=== PATIENT | male | born 1960 | race African-American/Black ===

== ENCOUNTER 2017-11-25 11:32 | Inpatient (IN) ==
[2017-11-25 12:52] LABS: Basophils % 0.4 % (0.0-0.8); Eosinophils # 0.1 10*3/uL (0.0-0.87); Eosinophils % 1.6 % (0.00-10.9); Hematocrit 40.5 VOL% (42.0-52.0); Hemoglobin 12.5 GM/DL (14.0-18.0); Immature Granulocytes % 1.3 %; Immature Granulocytes Absolute 0.07 #; Lymphocytes # 0.5 10*3/uL (1.4-4.0); Lymphocytes % 9.5 % (21.2-54.2); Mean Corpuscular HGB Conc 30.9 GM/DL (32-36); Mean Corpuscular Hemoglobin 35 PG (27-34); Mean Corpuscular Volume 111.9 FL (87-102); Mean Platelet Volume 9.8 FL (9.6-12.0); Monocytes # 0.9 10*3/uL (0.11-0.8); Monocytes % 15.7 % (1.7-12.7); Neutrophils # 3.9 10*3/uL (1.4-7.4); Neutrophils % 71.5 % (38.7-73.9); Platelet Count 201 T/CUMM (130-400); Red Blood Count 3.62 MC/CUMM (3.8-5.5); Red Cell Distribution Width 13.2 % (9.3-17.3); White Blood Count 5.5 T/CUMM (4-12)
[2017-11-25 13:07] LABS: Albumin 1.9 G/DL (3.4-5.0); Bilirubin,Total 0.7 MG/DL (0.2-1.0); Calcium 7.5 MG/DL (8.5-10.1); Osmolality,Calculated 298.4 MOS/KG (273-304); Potassium 5.1 MMOL/L (3.5-5.1); Total Protein 5.6 G/DL (6.4-8.3)
[2017-11-25 13:11] LABS: Lactic Acid 1.2 MMOL/L (0.4-2.0)
[2017-11-25 13:28] LABS: Eosinophils 2 % (0-10); Lymphocytes 11 % (20-55); Platelet Estimate Normal; Segmented Neutrophils 71 % (50-85); Total Cells Counted 100
[2017-11-25] MEDS ORDERED: DILTIAZEM 100 MG VIAL.ADD IV STA (13:37)
[2017-11-25] MEDS ORDERED: DILTIAZEM 50 MG/10 ML VIAL IV ONE (13:38)
[2017-11-25] MEDS ORDERED: guaiFENesin/DM ER 600-30 MG TABLET PO PRN (14:47)
[2017-11-25] MEDS ORDERED: NICOTINE 21 MG/24 HR PATCH TRANSDERM PRN (14:47)
[2017-11-25] MEDS ORDERED: ACETAMINOPHEN 325 MG TABLET PO PRN (14:47)
[2017-11-25] MEDS ORDERED: ONDANSETRON 4 MG/2 ML VIAL IV PRN (14:47)
[2017-11-25] MEDS ORDERED: MORPHINE 2 MG/1 ML SYRINGE IV PRN (14:47)
[2017-11-25] MEDS ORDERED: hydrALAZINE 20 MG/1 ML VIAL IV STA (14:52)
[2017-11-25] MEDS ORDERED: DILTIAZEM 30 MG TABLET PO SCH (15:00)
[2017-11-25] MEDS ORDERED: DILTIAZEM 100 MG VIAL.ADD IV ONE (15:06)
[2017-11-25] MEDS: DILTIAZEM 30 MG TABLET PO SCH (19:10)
[2017-11-25] MEDS: CALCIUM ACETATE 667 MG CAPSULE PO SCH (21:54)
[2017-11-25] MEDS: GABAPENTIN 300 MG CAPSULE PO SCH (21:54)
[2017-11-25] MEDS: BRIMONIDINE/TIMOLOL OPH SOLN 5 ML BOTTLE BOTH EYES SCH (21:54)
[2017-11-25] MEDS: DOCUSATE SODIUM 100 MG CAPSULE PO SCH (21:54)
[2017-11-25] MEDS: BIMATOPROST 0.01% OPH SOLN 2.5 ML BOTTLE BOTH EYES SCH (21:54)
[2017-11-25] MEDS: acetaZOLAMIDE 250 MG TABLET PO SCH (21:55)
[2017-11-26 06:24] LABS: Basophils % 0.4 % (0.0-0.8); Eosinophils # 0.1 10*3/uL (0.0-0.87); Eosinophils % 1.2 % (0.00-10.9); Hematocrit 34.3 VOL% (42.0-52.0); Hemoglobin 10.7 GM/DL (14.0-18.0); Immature Granulocytes % 1.8 %; Immature Granulocytes Absolute 0.09 #; Lymphocytes # 0.6 10*3/uL (1.4-4.0); Lymphocytes % 12.5 % (21.2-54.2); Mean Corpuscular HGB Conc 31.2 GM/DL (32-36); Mean Corpuscular Hemoglobin 35 PG (27-34); Mean Corpuscular Volume 110.6 FL (87-102); Mean Platelet Volume 9.7 FL (9.6-12.0); Monocytes # 0.9 10*3/uL (0.11-0.8); Neutrophils # 3.4 10*3/uL (1.4-7.4); Neutrophils % 66.1 % (38.7-73.9); Platelet Count 202 T/CUMM (130-400); Red Cell Distribution Width 13.3 % (9.3-17.3); White Blood Count 5.1 T/CUMM (4-12)
[2017-11-26 06:25] LABS: Alanine Aminotransferase < 6 U/L (16-61); Albumin 1.6 G/DL (3.4-5.0); Alkaline Phosphatase 76 U/L (45-117); Aspartate Amino Transferase 22 U/L (0-37); Blood Urea Nitrogen 78 MG/DL (7-18); Calcium 7.6 MG/DL (8.5-10.1); Cholesterol 133 MG/DL (50-200); Glucose 96 MG/DL (74-106); HDL Cholesterol 29 MG/DL (40-60); Osmolality,Calculated 297.7 MOS/KG (273-304); Potassium 4.8 MMOL/L (3.5-5.1); Risk Ratio 4.59; Sodium 138 MMOL/L (136-145); Total Protein 4.7 G/DL (6.4-8.3); Triglycerides 242 MG/DL (2-150); VLDL CHOLESTEROL 48.4 MG/DL
[2017-11-26 06:37] LABS: Band Neutrophils 4 % (0-10); Burr Cells Slight; Eosinophils 1 % (0-10); Hypochromasia 1+; Lymphocytes 11 % (20-55); Ovalocytes Slight; Platelet Estimate Adequate; Segmented Neutrophils 68 % (50-85); Total Cells Counted 100
[2017-11-26] MEDS: CALCIUM ACETATE 667 MG CAPSULE PO SCH ×3 (08:28→17:47)
[2017-11-26] MEDS: acetaZOLAMIDE 250 MG TABLET PO SCH ×2 (08:28→21:58)
[2017-11-26] MEDS: BRIMONIDINE/TIMOLOL OPH SOLN 5 ML BOTTLE BOTH EYES SCH ×2 (08:29→22:00)
[2017-11-26] MEDS: PANTOPRAZOLE 40 MG TABLET PO SCH (08:29)
[2017-11-26] MEDS: DOCUSATE SODIUM 100 MG CAPSULE PO SCH ×2 (08:29→21:58)
[2017-11-26] MEDS: CYANOCOBALAMIN 500 MCG TABLET PO SCH (08:29)
[2017-11-26] MEDS: FAMOTIDINE 20 MG TABLET PO SCH (08:29)
[2017-11-26] MEDS: CINACALCET 30 MG TABLET PO SCH (08:29)
[2017-11-26] MEDS: DILTIAZEM 30 MG TABLET PO SCH ×2 (08:30→21:50)
[2017-11-26] MEDS: MULTIVITAMIN (BEROCCA) TABLET PO SCH (08:31)
[2017-11-26] MEDS: GABAPENTIN 300 MG CAPSULE PO SCH ×2 (08:31→21:49)
[2017-11-26 10:36] LABS: Hepatitis A Ab IgM Result Negative (Negative); Hepatitis B Core IgM Quant 0.17 Index; Hepatitis B Core IgM Result Negative (Negative); Hepatitis B Surface Ag Quant < 0.10 Index; Hepatitis B Surface Ag Result Negative (Negative); Hepatitis C Virus Ab Quant > 11.00 Index
[2017-11-26 10:47] LABS: Hepatitis C Virus Ab Result POSITIVE (Negative)
[2017-11-26] MEDS: BIMATOPROST 0.01% OPH SOLN 2.5 ML BOTTLE BOTH EYES SCH (22:00)
[2017-11-27] MEDS: BRIMONIDINE/TIMOLOL OPH SOLN 5 ML BOTTLE BOTH EYES SCH (08:24)
[2017-11-27] MEDS: CINACALCET 30 MG TABLET PO SCH (08:25)
[2017-11-27] MEDS: DILTIAZEM 30 MG TABLET PO SCH (08:25)
[2017-11-27] MEDS: CYANOCOBALAMIN 500 MCG TABLET PO SCH (08:25)
[2017-11-27] MEDS: FAMOTIDINE 20 MG TABLET PO SCH (08:25)
[2017-11-27] MEDS: MULTIVITAMIN (BEROCCA) TABLET PO SCH (08:25)
[2017-11-27] MEDS: CALCIUM ACETATE 667 MG CAPSULE PO SCH ×2 (08:25→13:00)
[2017-11-27] MEDS: PANTOPRAZOLE 40 MG TABLET PO SCH (08:25)
[2017-11-27] MEDS: acetaZOLAMIDE 250 MG TABLET PO SCH (08:25)
[2017-11-27] MEDS: GABAPENTIN 300 MG CAPSULE PO SCH (08:25)
[2017-11-27] MEDS: DOCUSATE SODIUM 100 MG CAPSULE PO SCH (08:27)
[2017-11-27 12:16] VITALS: BP 138/81
[2017-11-27] MEDS ORDERED: DILTIAZEM CD 180 MG CAPSULE PO SCH (15:00)
== END 2017-11-27 15:08 | disposition home or self-care (01) | DRG 682 ==
LOC: EDUNIT# → EDBD → N.ED 11:32 → N.EDINP 14:46 → N.2E 19:33
PROVIDERS: ADMIT Hospitalist; ATTEND Hospitalist

== ENCOUNTER 2017-11-28 17:56 | Inpatient (IN) ==
[2017-11-28] MEDS ORDERED: ASPIRIN CHEW 81 MG TABLET PO STA (18:18)
[2017-11-28] MEDS ORDERED: METOPROLOL TARTRATE 5 MG/5 ML VIAL IV STA ×2 (18:20→18:45)
[2017-11-28] MEDS ORDERED: METOPROLOL TARTRATE 5 MG/5 ML VIAL IV ONE ×2 (18:23→19:02)
[2017-11-28] MEDS ORDERED: ACETAMINOPHEN 325 MG TABLET PO ONE (18:41)
[2017-11-28] MEDS ORDERED: PIPERACILLIN/TAZOBACTAM 2,250 MG in SODIUM CHLORIDE 0.9% 100 ML IV STA (18:42)
[2017-11-28] MEDS ORDERED: VANCOMYCIN INJ 1,000 MG in SODIUM CHLORIDE 0.9% 250 ML IV STA (18:44)
[2017-11-28] MEDS ORDERED: HEPARIN LOCK FLUSH 500 UNIT/5 ML SYRINGE IV ONE (18:53)
[2017-11-28] MEDS ORDERED: ACETAMINOPHEN 325 MG TABLET ONE (19:02)
[2017-11-28] MEDS ORDERED: VANCOMYCIN 1,000 MG VIAL ONE (19:02)
[2017-11-28 19:11] LABS: Basophils % 0.2 % (0.0-0.8); Eosinophils % 0.2 % (0.00-10.9); Hematocrit 34.3 VOL% (42.0-52.0); Hemoglobin 10.7 GM/DL (14.0-18.0); Immature Granulocytes % 1.6 %; Lymphocytes # 0.5 10*3/uL (1.4-4.0); Lymphocytes % 3.7 % (21.2-54.2); Mean Corpuscular HGB Conc 31.2 GM/DL (32-36); Mean Corpuscular Hemoglobin 34 PG (27-34); Mean Corpuscular Volume 110.3 FL (87-102); Mean Platelet Volume 9.2 FL (9.6-12.0); Monocytes # 1.6 10*3/uL (0.11-0.8); Monocytes % 12.5 % (1.7-12.7); Neutrophils # 10.4 10*3/uL (1.4-7.4); Neutrophils % 81.8 % (38.7-73.9); Platelet Count 180 T/CUMM (130-400); Red Blood Count 3.11 MC/CUMM (3.8-5.5); Red Cell Distribution Width 13.3 % (9.3-17.3); White Blood Count 12.7 T/CUMM (4-12)
[2017-11-28 19:45] LABS: Alanine Aminotransferase < 9 U/L (16-61); Albumin 1.7 G/DL (3.4-5.0); Alkaline Phosphatase 87 U/L (45-117); Aspartate Amino Transferase 23 U/L (0-37); Blood Urea Nitrogen 60 MG/DL (7-18); Calcium 7.4 MG/DL (8.5-10.1); Glucose 99 MG/DL (74-106); Osmolality,Calculated 291.7 MOS/KG (273-304); Potassium 4.5 MMOL/L (3.5-5.1); Sodium 138 MMOL/L (136-145); Total Protein 5.3 G/DL (6.4-8.3); Troponin I Only 0.019 NG/ML (0.00-0.045)
[2017-11-28 21:29] LABS: Anisocytosis 1+; Band Neutrophils 2 % (0-10); Eosinophils 1 % (0-10); Lymphocytes 3 % (20-55); Macrocytosis 1+; Ovalocytes 1+; Platelet Estimate Normal; Segmented Neutrophils 83 % (50-85); Total Cells Counted 100
[2017-11-28] MEDS ORDERED: ACETAMINOPHEN 325 MG TABLET PO PRN (23:32)
[2017-11-28] MEDS ORDERED: ONDANSETRON 4 MG/2 ML VIAL IV PRN (23:32)
[2017-11-28] MEDS ORDERED: MORPHINE 2 MG/1 ML SYRINGE IV PRN (23:32)
[2017-11-28] MEDS ORDERED: CALCIUM GLUCONATE 1,000 MG in SODIUM CHLORIDE 0.9% 100 ML IV ONE (23:37)
[2017-11-28] MEDS ORDERED: ALBUTEROL/IPRATROPIUM 3 ML NEB RESP TX PRN (23:41)
[2017-11-28] MEDS ORDERED: ENOXAPARIN 30 MG/0.3 ML SYRINGE SUBCUT SCH (23:45)
[2017-11-29] MEDS ORDERED: METOPROLOL TARTRATE 5 MG/5 ML VIAL IV SCH
[2017-11-29] MEDS: ALBUTEROL/IPRATROPIUM 3 ML NEB RESP TX SCH ×4 (00:24→19:43)
[2017-11-29] MEDS ORDERED: VANCOMYCIN INJ 500 MG in SODIUM CHLORIDE 0.9% 100 ML IV ONE ×2 (01:00→18:00)
[2017-11-29] MEDS: ENOXAPARIN 60 MG/0.6 ML SYRINGE SUBCUT SCH ×3 (01:28→23:23)
[2017-11-29] MEDS ORDERED: VANCOMYCIN INJ 500 MG in SODIUM CHLORIDE 0.9% 100 ML IV PRN (01:31)
[2017-11-29] MEDS: LEVOTHYROXINE 100 MCG VIAL IV SCH ×2 (03:23→06:00)
[2017-11-29 04:38] LABS: Calcium 7.5 MG/DL (8.5-10.1); Magnesium 1.9 MG/DL (1.8-2.4); Osmolality,Calculated 296.4 MOS/KG (273-304); Potassium 4.5 MMOL/L (3.5-5.1)
[2017-11-29] MEDS ORDERED: PIPERACILLIN/TAZOBACTAM 2,250 MG in SODIUM CHLORIDE 0.9% 100 ML IV SCH (09:00)
[2017-11-29] MEDS ORDERED: METOPROLOL TARTRATE 50 MG TABLET PO SCH (09:00)
[2017-11-29] MEDS: METOPROLOL TARTRATE 25 MG TABLET PO SCH ×2 (09:09→20:51)
[2017-11-29] MEDS: DOCUSATE SODIUM 100 MG CAPSULE PO SCH ×2 (09:09→20:51)
[2017-11-29] MEDS: DILTIAZEM CD 180 MG CAPSULE PO SCH ×2 (09:09→20:51)
[2017-11-29] MEDS: PANTOPRAZOLE 40 MG TABLET PO SCH (09:10)
[2017-11-29] MEDS: acetaZOLAMIDE 250 MG TABLET PO SCH ×2 (11:34→20:51)
[2017-11-29] MEDS: PIPERACILLIN/TAZOBACTAM 3,375 MG in SODIUM CHLORIDE 0.9% 100 ML IV SCH ×2 (11:35→22:35)
[2017-11-29] MEDS ORDERED: ZINC OXIDE PASTE 113 GM TUBE TOP PRN (17:41)
[2017-11-29] MEDS: PREGABALIN 75 MG CAPSULE PO SCH (20:51)
[2017-11-29] MEDS: traZODone 50 MG TABLET PO SCH (22:34)
[2017-11-30] MEDS: ALBUTEROL/IPRATROPIUM 3 ML NEB RESP TX SCH ×4 (01:20→21:00)
[2017-11-30 04:50] LABS: Basophils % 0.5 % (0.0-0.8); Eosinophils # 0.1 10*3/uL (0.0-0.87); Eosinophils % 1.3 % (0.00-10.9); Hematocrit 29.1 VOL% (42.0-52.0); Immature Granulocytes % 3.5 %; Lymphocytes # 0.4 10*3/uL (1.4-4.0); Lymphocytes % 4.6 % (21.2-54.2); Mean Corpuscular HGB Conc 30.9 GM/DL (32-36); Mean Corpuscular Hemoglobin 34 PG (27-34); Mean Corpuscular Volume 110.6 FL (87-102); Mean Platelet Volume 9.7 FL (9.6-12.0); Monocytes # 1.1 10*3/uL (0.11-0.8); Monocytes % 12.6 % (1.7-12.7); Neutrophils # 6.7 10*3/uL (1.4-7.4); Neutrophils % 77.5 % (38.7-73.9); Platelet Count 144 T/CUMM (130-400); Red Blood Count 2.63 MC/CUMM (3.8-5.5); Red Cell Distribution Width 13.1 % (9.3-17.3); White Blood Count 8.6 T/CUMM (4-12)
[2017-11-30 05:18] LABS: Band Neutrophils 1 % (0-10); Eosinophils 1 % (0-10); Hypochromasia 1+; Lymphocytes 4 % (20-55); Metamyelocytes 1 %; Myelocytes 1 %; Segmented Neutrophils 82 % (50-85); Total Cells Counted 100
[2017-11-30 05:19] LABS: Burr Cells Few; Macrocytosis 1+
[2017-11-30 05:20] LABS: Platelet Estimate Adequate
[2017-11-30 05:30] LABS: Calcium 7.3 MG/DL (8.5-10.1); Osmolality,Calculated 303.3 MOS/KG (273-304); Potassium 4.5 MMOL/L (3.5-5.1)
[2017-11-30] MEDS: LEVOTHYROXINE 100 MCG VIAL IV SCH (06:04)
[2017-11-30] MEDS: acetaZOLAMIDE 250 MG TABLET PO SCH ×2 (08:55→21:09)
[2017-11-30] MEDS: PREGABALIN 75 MG CAPSULE PO SCH ×2 (08:55→21:08)
[2017-11-30] MEDS: METOPROLOL TARTRATE 25 MG TABLET PO SCH ×2 (08:56→21:09)
[2017-11-30] MEDS: DILTIAZEM CD 180 MG CAPSULE PO SCH ×2 (08:56→21:08)
[2017-11-30] MEDS: DOCUSATE SODIUM 100 MG CAPSULE PO SCH ×2 (08:56→21:08)
[2017-11-30] MEDS: PANTOPRAZOLE 40 MG TABLET PO SCH (08:56)
[2017-11-30] MEDS ORDERED: VANCOMYCIN INJ 1,000 MG in SODIUM CHLORIDE 0.9% 250 ML IV ONE (11:00)
[2017-11-30] MEDS: PIPERACILLIN/TAZOBACTAM 3,375 MG in SODIUM CHLORIDE 0.9% 100 ML IV SCH ×2 (11:13→23:20)
[2017-11-30] MEDS: traZODone 50 MG TABLET PO SCH (21:08)
[2017-11-30] MEDS: LOSARTAN 25 MG TABLET PO SCH (21:10)
[2017-11-30] MEDS: ENOXAPARIN 60 MG/0.6 ML SYRINGE SUBCUT SCH (23:17)
[2017-12-01] MEDS: ALBUTEROL/IPRATROPIUM 3 ML NEB RESP TX SCH ×4 (01:21→19:41)
[2017-12-01] MEDS: LEVOTHYROXINE 100 MCG VIAL IV SCH (06:00)
[2017-12-01 11:18] LABS: Appearance,CSF Clear; Lymphocytes,CSF 89 %; Monocytes,CSF 6 %; Neutrophils,CSF 5 %; Red Blood Cell,CSF < 1 C/CUMM; White Blood Cell,CSF 24 C/CUMM
[2017-12-01] MEDS: PREGABALIN 75 MG CAPSULE PO SCH ×2 (13:58→20:51)
[2017-12-01] MEDS: DOCUSATE SODIUM 100 MG CAPSULE PO SCH ×2 (13:59→20:51)
[2017-12-01] MEDS: PANTOPRAZOLE 40 MG TABLET PO SCH (13:59)
[2017-12-01] MEDS: METOPROLOL TARTRATE 25 MG TABLET PO SCH ×2 (13:59→20:51)
[2017-12-01] MEDS: acetaZOLAMIDE 250 MG TABLET PO SCH ×2 (13:59→20:51)
[2017-12-01] MEDS: DILTIAZEM CD 180 MG CAPSULE PO SCH ×2 (13:59→20:52)
[2017-12-01] MEDS: LACTULOSE 20 GM/30 ML UDCUP PO SCH ×2 (15:07→20:51)
[2017-12-01 15:23] LABS: Hepatitis A Ab IgM Quant 0.11 Index; Hepatitis A Ab IgM Result Negative (Negative); Hepatitis B Core IgM Quant 0.17 Index; Hepatitis B Core IgM Result Negative (Negative); Hepatitis B Surface Ag Quant < 0.10 Index; Hepatitis B Surface Ag Result Negative (Negative); Hepatitis C Virus Ab Quant > 11.00 Index; Hepatitis C Virus Ab Result Positive (Negative)
[2017-12-01] MEDS ORDERED: SKIN HEALING OINT (AQUAPHOR) 50 GM TUBE TOP PRN (15:30)
[2017-12-01] MEDS: ZINC OXIDE PASTE 113 GM TUBE TOP SCH (20:50)
[2017-12-01] MEDS: traZODone 50 MG TABLET PO SCH (20:51)
[2017-12-01] MEDS: LOSARTAN 25 MG TABLET PO SCH (20:51)
[2017-12-01] MEDS: SODIUM CHLORIDE 0.9% IV SCH (21:11)
[2017-12-01] MEDS: ACYCLOVIR IV SCH (21:11)
[2017-12-01] MEDS: ENOXAPARIN 60 MG/0.6 ML SYRINGE SUBCUT SCH (23:51)
[2017-12-02] MEDS: ALBUTEROL/IPRATROPIUM 3 ML NEB RESP TX SCH ×4 (04:31→20:17)
[2017-12-02 06:13] LABS: Basophils % 0.3 % (0.0-0.8); Eosinophils # 0.1 10*3/uL (0.0-0.87); Eosinophils % 1.4 % (0.00-10.9); Hematocrit 32.2 VOL% (42.0-52.0); Hemoglobin 10.2 GM/DL (14.0-18.0); Immature Granulocytes Absolute 0.49 #; Lymphocytes # 0.4 10*3/uL (1.4-4.0); Lymphocytes % 6.2 % (21.2-54.2); Mean Corpuscular HGB Conc 31.7 GM/DL (32-36); Mean Corpuscular Hemoglobin 35 PG (27-34); Mean Corpuscular Volume 109.9 FL (87-102); Mean Platelet Volume 9.6 FL (9.6-12.0); Monocytes # 0.9 10*3/uL (0.11-0.8); Monocytes % 13.3 % (1.7-12.7); Neutrophils % 71.8 % (38.7-73.9); Platelet Count 141 T/CUMM (130-400); Red Blood Count 2.93 MC/CUMM (3.8-5.5); Red Cell Distribution Width 13.2 % (9.3-17.3)
[2017-12-02] MEDS: LEVOTHYROXINE 100 MCG VIAL IV SCH (06:22)
[2017-12-02 06:32] LABS: Eosinophils 2 % (0-10); Lymphocytes 9 % (20-55); Macrocytosis 1+; Metamyelocytes 1 %; Nucleated Red Blood Cells 1 (0-5); Segmented Neutrophils 79 % (50-85); Total Cells Counted 100
[2017-12-02 06:33] LABS: Burr Cells Few; Platelet Estimate Adequate
[2017-12-02 06:36] LABS: Alanine Aminotransferase < 6 U/L (16-61); Albumin 1.4 G/DL (3.4-5.0); Alkaline Phosphatase 94 U/L (45-117); Aspartate Amino Transferase 27 U/L (0-37); Blood Urea Nitrogen 45 MG/DL (7-18); Calcium 7.6 MG/DL (8.5-10.1); Glucose 102 MG/DL (74-106); Osmolality,Calculated 294.1 MOS/KG (273-304); Potassium 4.3 MMOL/L (3.5-5.1); Sodium 142 MMOL/L (136-145); Total Protein 4.9 G/DL (6.4-8.3)
[2017-12-02] MEDS ORDERED: ZINC OXIDE PASTE 113 GM TUBE TOP SCH (09:00)
[2017-12-02] MEDS: ZINC OXIDE PASTE 113 GM TUBE TOP SCH ×2 (09:10→21:45)
[2017-12-02] MEDS: DILTIAZEM CD 180 MG CAPSULE PO SCH ×2 (14:50→21:31)
[2017-12-02] MEDS: acetaZOLAMIDE 250 MG TABLET PO SCH ×2 (14:51→21:31)
[2017-12-02] MEDS: LACTULOSE 20 GM/30 ML UDCUP PO SCH (14:51)
[2017-12-02] MEDS: METOPROLOL TARTRATE 25 MG TABLET PO SCH ×2 (14:51→21:30)
[2017-12-02] MEDS: DOCUSATE SODIUM 100 MG CAPSULE PO SCH (14:51)
[2017-12-02] MEDS: PREGABALIN 75 MG CAPSULE PO SCH ×2 (14:52→21:30)
[2017-12-02] MEDS: PANTOPRAZOLE 40 MG TABLET PO SCH (14:52)
[2017-12-02] MEDS: LOSARTAN 25 MG TABLET PO SCH (21:31)
[2017-12-02] MEDS: traZODone 50 MG TABLET PO SCH (21:31)
[2017-12-02] MEDS: ACYCLOVIR IV SCH (21:37)
[2017-12-02] MEDS: SODIUM CHLORIDE 0.9% IV SCH (21:37)
[2017-12-02] MEDS: ENOXAPARIN 60 MG/0.6 ML SYRINGE SUBCUT SCH (23:55)
[2017-12-03] MEDS: ALBUTEROL/IPRATROPIUM 3 ML NEB RESP TX SCH ×4 (00:41→21:16)
[2017-12-03] MEDS: LACTULOSE 20 GM/30 ML UDCUP PO SCH ×3 (01:09→22:56)
[2017-12-03] MEDS: DOCUSATE SODIUM 100 MG CAPSULE PO SCH ×3 (01:10→21:43)
[2017-12-03 06:26] LABS: Basophils % 0.3 % (0.0-0.8); Eosinophils # 0.2 10*3/uL (0.0-0.87); Eosinophils % 2.2 % (0.00-10.9); Hematocrit 31.6 VOL% (42.0-52.0); Immature Granulocytes % 6.4 %; Immature Granulocytes Absolute 0.43 #; Lymphocytes # 0.5 10*3/uL (1.4-4.0); Lymphocytes % 7.8 % (21.2-54.2); Mean Corpuscular HGB Conc 31.6 GM/DL (32-36); Mean Corpuscular Hemoglobin 35 PG (27-34); Mean Corpuscular Volume 109.7 FL (87-102); Mean Platelet Volume 9.8 FL (9.6-12.0); Monocytes # 0.8 10*3/uL (0.11-0.8); Monocytes % 11.5 % (1.7-12.7); Neutrophils # 4.8 10*3/uL (1.4-7.4); Neutrophils % 71.8 % (38.7-73.9); Platelet Count 120 T/CUMM (130-400); Red Blood Count 2.88 MC/CUMM (3.8-5.5); White Blood Count 6.7 T/CUMM (4-12)
[2017-12-03] MEDS: LEVOTHYROXINE 100 MCG VIAL IV SCH (06:40)
[2017-12-03 06:53] LABS: Calcium 8.1 MG/DL (8.5-10.1); Osmolality,Calculated 284.4 MOS/KG (273-304); Potassium 4.3 MMOL/L (3.5-5.1)
[2017-12-03 06:55] LABS: Eosinophils 1 % (0-10); Lymphocytes 3 % (20-55); Segmented Neutrophils 91 % (50-85); Total Cells Counted 100
[2017-12-03 06:56] LABS: Burr Cells Slight; Giant Platelets Few; Hypochromasia 1+; Macrocytosis Slight; Ovalocytes Slight; Platelet Estimate Normal
[2017-12-03] MEDS: PREGABALIN 75 MG CAPSULE PO SCH ×2 (08:09→21:43)
[2017-12-03] MEDS: ZINC OXIDE PASTE 113 GM TUBE TOP SCH ×2 (08:09→22:57)
[2017-12-03] MEDS: PANTOPRAZOLE 40 MG TABLET PO SCH (08:09)
[2017-12-03] MEDS: acetaZOLAMIDE 250 MG TABLET PO SCH ×2 (08:09→21:41)
[2017-12-03] MEDS: DILTIAZEM CD 180 MG CAPSULE PO SCH ×2 (08:09→21:41)
[2017-12-03] MEDS: METOPROLOL TARTRATE 25 MG TABLET PO SCH ×2 (08:10→21:43)
[2017-12-03] MEDS ORDERED: PIPERACILLIN/TAZOBACTAM 2,250 MG in SODIUM CHLORIDE 0.9% 100 ML IV SCH (14:00)
[2017-12-03] MEDS: APIXABAN 2.5 MG TABLET PO SCH ×2 (14:31→21:43)
[2017-12-03] MEDS: PIPERACILLIN/TAZOBACTAM 3,375 MG in SODIUM CHLORIDE 0.9% 100 ML IV SCH (15:42)
[2017-12-03] MEDS ORDERED: VANCOMYCIN INJ 1,250 MG in SODIUM CHLORIDE 0.9% 250 ML IV ONE (19:00)
[2017-12-03] MEDS: traZODone 50 MG TABLET PO SCH (21:43)
[2017-12-03] MEDS: LOSARTAN 25 MG TABLET PO SCH (21:43)
[2017-12-04] MEDS: ACYCLOVIR IV SCH ×2 (00:09→23:22)
[2017-12-04] MEDS: SODIUM CHLORIDE 0.9% IV SCH ×2 (00:09→23:22)
[2017-12-04] MEDS: ALBUTEROL/IPRATROPIUM 3 ML NEB RESP TX SCH ×4 (01:12→20:18)
[2017-12-04] MEDS: PIPERACILLIN/TAZOBACTAM 3,375 MG in SODIUM CHLORIDE 0.9% 100 ML IV SCH ×2 (02:05→17:30)
[2017-12-04] MEDS: LEVOTHYROXINE 100 MCG VIAL IV SCH (06:20)
[2017-12-04] MEDS: DILTIAZEM CD 180 MG CAPSULE PO SCH ×2 (09:53→21:26)
[2017-12-04] MEDS: acetaZOLAMIDE 250 MG TABLET PO SCH ×2 (09:53→21:27)
[2017-12-04] MEDS: PANTOPRAZOLE 40 MG TABLET PO SCH (09:54)
[2017-12-04] MEDS: DOCUSATE SODIUM 100 MG CAPSULE PO SCH ×2 (09:54→21:27)
[2017-12-04] MEDS: METOPROLOL TARTRATE 25 MG TABLET PO SCH ×2 (09:54→21:27)
[2017-12-04] MEDS: LACTULOSE 20 GM/30 ML UDCUP PO SCH ×2 (09:54→21:26)
[2017-12-04] MEDS: APIXABAN 2.5 MG TABLET PO SCH ×2 (09:54→21:27)
[2017-12-04] MEDS: PREGABALIN 75 MG CAPSULE PO SCH ×2 (09:54→21:26)
[2017-12-04] MEDS: ZINC OXIDE PASTE 113 GM TUBE TOP SCH ×2 (09:55→21:27)
[2017-12-04] MEDS ORDERED: VANCOMYCIN INJ 500 MG in SODIUM CHLORIDE 0.9% 100 ML IV ONE ×2 (12:00→23:30)
[2017-12-04] MEDS ORDERED: VANCOMYCIN INJ 500 MG in SODIUM CHLORIDE 0.9% 100 ML IV PRN (18:00)
[2017-12-04] MEDS: traZODone 50 MG TABLET PO SCH (21:27)
[2017-12-04] MEDS: LOSARTAN 25 MG TABLET PO SCH (21:27)
[2017-12-04] MEDS: VANCOMYCIN INJ 500 MG in SODIUM CHLORIDE 0.9% 100 ML IV ONE ×2 (22:15→23:16)
[2017-12-05] MEDS: ALBUTEROL/IPRATROPIUM 3 ML NEB RESP TX SCH ×5 (00:50→20:51)
[2017-12-05] MEDS: PIPERACILLIN/TAZOBACTAM 3,375 MG in SODIUM CHLORIDE 0.9% 100 ML IV SCH ×2 (02:58→15:10)
[2017-12-05] MEDS: LEVOTHYROXINE 100 MCG VIAL IV SCH (07:31)
[2017-12-05] MEDS: PANTOPRAZOLE 40 MG TABLET PO SCH (09:13)
[2017-12-05] MEDS: acetaZOLAMIDE 250 MG TABLET PO SCH ×2 (09:13→21:29)
[2017-12-05] MEDS: DOCUSATE SODIUM 100 MG CAPSULE PO SCH ×2 (09:13→21:26)
[2017-12-05] MEDS: PREGABALIN 75 MG CAPSULE PO SCH ×2 (09:13→21:26)
[2017-12-05] MEDS: LACTULOSE 20 GM/30 ML UDCUP PO SCH ×2 (09:13→21:27)
[2017-12-05] MEDS: ZINC OXIDE PASTE 113 GM TUBE TOP SCH ×2 (09:13→21:27)
[2017-12-05] MEDS: APIXABAN 2.5 MG TABLET PO SCH ×2 (09:13→21:26)
[2017-12-05] MEDS: METOPROLOL TARTRATE 25 MG TABLET PO SCH ×2 (09:13→21:26)
[2017-12-05] MEDS: DILTIAZEM CD 180 MG CAPSULE PO SCH ×2 (09:13→21:26)
[2017-12-05] MEDS: SPIRONOLACTONE 25 MG TABLET PO SCH (15:10)
[2017-12-05] MEDS: LOSARTAN 25 MG TABLET PO SCH (21:26)
[2017-12-05] MEDS: traZODone 50 MG TABLET PO SCH (21:27)
[2017-12-06] MEDS: ACYCLOVIR IV SCH (00:20)
[2017-12-06] MEDS: SODIUM CHLORIDE 0.9% IV SCH (00:20)
[2017-12-06] MEDS: ALBUTEROL/IPRATROPIUM 3 ML NEB RESP TX SCH ×2 (00:57→08:26)
[2017-12-06] MEDS: PIPERACILLIN/TAZOBACTAM 3,375 MG in SODIUM CHLORIDE 0.9% 100 ML IV SCH ×2 (04:36→16:40)
[2017-12-06 05:26] LABS: Basophils % 0.3 % (0.0-0.8); Eosinophils # 0.1 10*3/uL (0.0-0.87); Eosinophils % 2.1 % (0.00-10.9); Hematocrit 29.9 VOL% (42.0-52.0); Hemoglobin 9.2 GM/DL (14.0-18.0); Immature Granulocytes % 4.9 %; Lymphocytes # 0.8 10*3/uL (1.4-4.0); Lymphocytes % 12.3 % (21.2-54.2); Mean Corpuscular HGB Conc 30.8 GM/DL (32-36); Mean Corpuscular Hemoglobin 34 PG (27-34); Mean Corpuscular Volume 110.7 FL (87-102); Mean Platelet Volume 10.6 FL (9.6-12.0); Monocytes # 0.8 10*3/uL (0.11-0.8); Monocytes % 13.3 % (1.7-12.7); Neutrophils # 4.1 10*3/uL (1.4-7.4); Neutrophils % 67.1 % (38.7-73.9); Platelet Count 143 T/CUMM (130-400); Red Cell Distribution Width 13.1 % (9.3-17.3); White Blood Count 6.1 T/CUMM (4-12)
[2017-12-06 05:58] LABS: Calcium 7.9 MG/DL (8.5-10.1); Osmolality,Calculated 287.3 MOS/KG (273-304); Potassium 4.1 MMOL/L (3.5-5.1)
[2017-12-06] MEDS: LEVOTHYROXINE 100 MCG VIAL IV SCH (07:55)
[2017-12-06 08:15] LABS: Giant Platelets Few; Platelet Estimate Normal
[2017-12-06] MEDS: LACTULOSE 20 GM/30 ML UDCUP PO SCH ×3 (08:58→21:43)
[2017-12-06] MEDS: METOPROLOL TARTRATE 25 MG TABLET PO SCH ×2 (08:59→21:51)
[2017-12-06] MEDS: APIXABAN 2.5 MG TABLET PO SCH ×2 (08:59→21:44)
[2017-12-06] MEDS: PREGABALIN 75 MG CAPSULE PO SCH ×2 (08:59→21:44)
[2017-12-06] MEDS: DOCUSATE SODIUM 100 MG CAPSULE PO SCH ×2 (08:59→21:44)
[2017-12-06] MEDS: PANTOPRAZOLE 40 MG TABLET PO SCH (08:59)
[2017-12-06] MEDS: DILTIAZEM CD 180 MG CAPSULE PO SCH ×2 (08:59→21:43)
[2017-12-06] MEDS: acetaZOLAMIDE 250 MG TABLET PO SCH ×2 (08:59→21:51)
[2017-12-06] MEDS: SPIRONOLACTONE 25 MG TABLET PO SCH (08:59)
[2017-12-06] MEDS: ZINC OXIDE PASTE 113 GM TUBE TOP SCH ×2 (08:59→21:45)
[2017-12-06] MEDS: traZODone 50 MG TABLET PO SCH (21:44)
[2017-12-06] MEDS: LOSARTAN 25 MG TABLET PO SCH (21:45)
[2017-12-07] MEDS: ACYCLOVIR IV SCH (00:20)
[2017-12-07] MEDS: SODIUM CHLORIDE 0.9% IV SCH (00:20)
[2017-12-07] MEDS: PIPERACILLIN/TAZOBACTAM 3,375 MG in SODIUM CHLORIDE 0.9% 100 ML IV SCH ×2 (04:40→16:06)
[2017-12-07] MEDS: LEVOTHYROXINE 100 MCG VIAL IV SCH (06:51)
[2017-12-07] MEDS: ZINC OXIDE PASTE 113 GM TUBE TOP SCH ×2 (11:00→21:57)
[2017-12-07] MEDS: LACTULOSE 20 GM/30 ML UDCUP PO SCH ×2 (12:15→21:54)
[2017-12-07] MEDS: DILTIAZEM CD 180 MG CAPSULE PO SCH ×2 (15:42→21:55)
[2017-12-07] MEDS: DOCUSATE SODIUM 100 MG CAPSULE PO SCH ×2 (15:43→21:55)
[2017-12-07] MEDS: METOPROLOL TARTRATE 25 MG TABLET PO SCH ×2 (15:43→21:55)
[2017-12-07] MEDS: acetaZOLAMIDE 250 MG TABLET PO SCH ×2 (15:43→21:54)
[2017-12-07] MEDS: APIXABAN 2.5 MG TABLET PO SCH ×2 (15:43→21:55)
[2017-12-07] MEDS ORDERED: VANCOMYCIN INJ 500 MG in SODIUM CHLORIDE 0.9% 100 ML IV ONE (18:00)
[2017-12-07] MEDS: SPIRONOLACTONE 25 MG TABLET PO SCH (21:54)
[2017-12-07] MEDS: LOSARTAN 25 MG TABLET PO SCH (21:55)
[2017-12-07] MEDS: PANTOPRAZOLE 40 MG TABLET PO SCH (21:55)
[2017-12-07] MEDS: traZODone 50 MG TABLET PO SCH (21:55)
[2017-12-08] MEDS: SODIUM CHLORIDE 0.9% IV SCH (00:17)
[2017-12-08] MEDS: ACYCLOVIR IV SCH (00:17)
[2017-12-08] MEDS: PIPERACILLIN/TAZOBACTAM 3,375 MG in SODIUM CHLORIDE 0.9% 100 ML IV SCH ×2 (05:18→15:19)
[2017-12-08] MEDS: LEVOTHYROXINE 100 MCG VIAL IV SCH (07:32)
[2017-12-08] MEDS: SPIRONOLACTONE 25 MG TABLET PO SCH (09:08)
[2017-12-08] MEDS: METOPROLOL TARTRATE 25 MG TABLET PO SCH ×2 (09:09→21:33)
[2017-12-08] MEDS: APIXABAN 2.5 MG TABLET PO SCH ×2 (09:09→21:33)
[2017-12-08] MEDS: PANTOPRAZOLE 40 MG TABLET PO SCH (09:09)
[2017-12-08] MEDS: DOCUSATE SODIUM 100 MG CAPSULE PO SCH ×2 (09:09→21:33)
[2017-12-08] MEDS: DILTIAZEM CD 180 MG CAPSULE PO SCH ×2 (09:09→21:33)
[2017-12-08] MEDS: acetaZOLAMIDE 250 MG TABLET PO SCH ×2 (09:09→21:33)
[2017-12-08] MEDS: LACTULOSE 20 GM/30 ML UDCUP PO SCH ×2 (09:10→21:33)
[2017-12-08] MEDS: ZINC OXIDE PASTE 113 GM TUBE TOP SCH ×2 (09:10→21:34)
[2017-12-08] MEDS: LOSARTAN 25 MG TABLET PO SCH (21:32)
[2017-12-08] MEDS: traZODone 50 MG TABLET PO SCH (21:43)
[2017-12-09] MEDS: SODIUM CHLORIDE 0.9% IV SCH (01:13)
[2017-12-09] MEDS: ACYCLOVIR IV SCH (01:13)
[2017-12-09] MEDS: PIPERACILLIN/TAZOBACTAM 3,375 MG in SODIUM CHLORIDE 0.9% 100 ML IV SCH (04:55)
[2017-12-09] MEDS: LEVOTHYROXINE 100 MCG VIAL IV SCH (07:20)
[2017-12-09] MEDS: SPIRONOLACTONE 25 MG TABLET PO SCH (08:42)
[2017-12-09] MEDS: LACTULOSE 20 GM/30 ML UDCUP PO SCH (08:42)
[2017-12-09] MEDS: DOCUSATE SODIUM 100 MG CAPSULE PO SCH (08:43)
[2017-12-09] MEDS: PANTOPRAZOLE 40 MG TABLET PO SCH (08:43)
[2017-12-09] MEDS: APIXABAN 2.5 MG TABLET PO SCH (08:43)
[2017-12-09] MEDS: METOPROLOL TARTRATE 25 MG TABLET PO SCH (08:43)
[2017-12-09] MEDS: DILTIAZEM CD 180 MG CAPSULE PO SCH (08:43)
[2017-12-09] MEDS: ZINC OXIDE PASTE 113 GM TUBE TOP SCH (08:43)
[2017-12-09] MEDS: acetaZOLAMIDE 250 MG TABLET PO SCH (08:45)
[2017-12-09 14:57] VITALS: BP 138/86
== END 2017-12-09 15:52 | DRG 853 ==
LOC: EDBD → EDUNIT# → N.ED 17:56 → N.EDINP 22:28 → SUATTDRO 22:28 → N.TELES 23:23 → N.TELEN 11-30 16:29
PROVIDERS: ADMIT Internal Medicine